=== PATIENT | female | born 1975 | race Asian ===

== ENCOUNTER 2019-07-13 13:02 | Outpatient (CLI) | payer BC | END 2019-07-13 23:59 | disposition home or self-care (01) | LOC: LAB 13:02 | PROVIDERS: ATTEND Legal Medicine | DX: Z11.3 Encounter for screening for infections with a predominantly sexual mode of transmission (principal) | CPT/HCPCS: 36415; 86592; 86694; 86695; 86696; 87491; 87591; 87806 ==

== ENCOUNTER → 2019-10-18 | Day surgery (SDC) | payer BC ==
[~2019-10-18] MED LIST: FERRIC SUBSULFATE 8 GM/VIAL VIAL TP ONE; MIDAZOLAM HCL 2 MG/2ML VIAL ONE
== END | disposition home or self-care (01) ==
LOC: DS 08:14
PROVIDERS: ATTEND Obstetrics & Gynecology
DX: N87.9 Dysplasia of cervix uteri, unspecified (principal)
CPT/HCPCS: 57522; 84703; 88305; 88307; A6402; J0690; J1100; J2250; J2405; J2704; J3490